=== PATIENT | male | born 1970 | race Caucasian/White ===

== ENCOUNTER 2023-12-06 23:21 | Emergency (ER) | payer MEDICAID ==
[~2023-12-06] VITALS: Ht 177.8 cm; Wt 120.0 kg
[2023-12-06 23:25] VITALS: O2SAT 99
[2023-12-07 02:22] LABS: BASOPHILS % 0.7 % (0.0-2.0); EOSINOPHILS % 5.2 % (0.0-5.0); HEMATOCRIT. 38.8 % (42.0-52.0); LYMPHOCYTES % 23.1 % (20.0-50.0); MEAN CORPUSCULAR HEMOGLOBIN 29.4 pg (28.0-32.0); MEAN CORPUSCULAR HGB CONC 33.5 g/dL (31.0-37.0); MEAN CORPUSCULAR VOLUME 87.8 fL (80.0-94.0); MEAN PLATELET VOLUME 8.7 fl (7.4-10.4); MONOCYTES % 7.5 % (2.0-8.0); NEUTROPHILS % 63.5 % (40.0-76.0); PLATELET 280 x1000/uL (130-400); RED BLOOD CELL COUNT 4.42 mill/uL (4.7-6.1); RED CELL DISTRIBUTION WIDTH 14.6 % (11.6-14.6); WHITE BLOOD COUNT 11.6 x1000/uL (4.5-11.0)
[2023-12-07 02:40] LABS: ALANINE AMINOTRANSFERASE 17 IU/L (10-49); ALBUMIN 4.3 g/dL (3.2-4.8); ASPARTATE AMINOTRANSFERASE 19 IU/L (<34); BILIRUBIN TOTAL 0.5 mg/dL (0.1-1.0); CALCIUM 8.6 mg/dL (8.7-10.4); CARBON DIOXIDE 28 mEq/L (21-32); CHLORIDE 103 mEq/L (98-107); CREATININE 0.7 mg/dL (0.6-1.3); GLUCOSE 100 mg/dL (70-105); POTASSIUM 4.1 mEq/L (3.5-5.1); PROTEIN TOTAL 6.9 g/dL (6.0-8.3); SODIUM 136 mEq/L (136-145); TROPONIN I HIGH SENSITIVITY 8 ng/L (3.0-53); UREA NITROGEN BLOOD 8 mg/dL (9-23)
[2023-12-07 03:13] LABS: CLARITY URINE CLOUDY (CLEAR); COLOR URINE YELLOW (YELLOW); GLUCOSE URINE NEGATIVE (NEGATIVE); KETONES URINE TRACE (NEGATIVE); LEUKOCYTE ESTERASE URINE NEGATIVE (NEGATIVE); NITRITE URINE NEGATIVE (NEGATIVE); OCCULT BLOOD URINE NEGATIVE (NEGATIVE); PH URINE 5.5 (4.5-8.0); PROTEIN URINE NEGATIVE (NEGATIVE); SPECIFIC GRAVITY URINE 1.025 (1.005-1.030)
[2023-12-07 04:52] LABS: WBC URINE 0-2 /hpf (0-2)
[2023-12-07 04:54] LABS: BACTERIA URINE NONE SEEN; RBC URINE 0-2 /hpf (0-2); SQUAMOUS EPITHELIAL CELL URINE RARE /lpf (RARE/1+)
[2023-12-07 05:40] VITALS: BP 113/74; PULSE 64; RESP 20; TEMP 98.8
== END 2023-12-07 06:16 | disposition home or self-care (01) ==
LOC: ER 23:21
DX: R07.89 Other chest pain (principal); I10 Essential (primary) hypertension; Z88.0 Allergy status to penicillin
CPT/HCPCS: 36415; 71045; 80053; 81003; 84484; 85025; 99284

== ENCOUNTER 2024-03-21 21:04 | Emergency (ER) | payer MEDICAID ==
[~2024-03-21] VITALS: Ht 167.6 cm; Wt 118.0 kg
[~2024-03-21 21:04] MED LIST: APIX5TAB PO; ASPI-1160 PO; ATOR-2 PO; CLOP75TA33 PO; FERR325T30 PO; ISOS30TA91 PO; LEVE750T4 PO; LEVO750T68 PO; LOSA25TA26 PO; METO25TA6 PO; SUCR1TAB30 PO
[2024-03-21 21:09] VITALS: BP 172/72; PULSE 91; RESP 18; TEMP 98.6; O2SAT 100
[2024-03-21 21:48] LABS: BASOPHILS % 0.8 % (0.0-2.0); EOSINOPHILS % 6.2 % (0.0-5.0); HEMATOCRIT. 30.8 % (42.0-52.0); HEMOGLOBIN. 10.2 g/dL (14.0-18.0); LYMPHOCYTES % 24.6 % (20.0-50.0); MEAN CORPUSCULAR HEMOGLOBIN 28.2 pg (28.0-32.0); MEAN CORPUSCULAR HGB CONC 33.2 g/dL (31.0-37.0); MEAN CORPUSCULAR VOLUME 84.8 fL (80.0-94.0); MEAN PLATELET VOLUME 8.7 fl (7.4-10.4); MONOCYTES % 9.3 % (2.0-8.0); NEUTROPHILS % 59.1 % (40.0-76.0); PLATELET 318 x1000/uL (130-400); RED BLOOD CELL COUNT 3.64 mill/uL (4.7-6.1); RED CELL DISTRIBUTION WIDTH 13.7 % (11.6-14.6); WHITE BLOOD COUNT 9.6 x1000/uL (4.5-11.0)
[2024-03-21 21:56] LABS: CHLORIDE 102 mEq/L (98-107); POTASSIUM 3.4 mEq/L (3.5-5.1); SODIUM 135 mEq/L (136-145)
[2024-03-21 21:57] LABS: CARBON DIOXIDE 25 mEq/L (21-32); PARTIAL THROMBOPLASTIN TIME 25.2 sec (23.4-31.0); PROTHROMBIN TIME 10.8 sec (9.6-11.0)
[2024-03-21 21:58] LABS: CALCIUM 8.8 mg/dL (8.7-10.4)
[2024-03-21 22:02] LABS: CREATININE 0.8 mg/dL (0.6-1.3)
[2024-03-21 22:03] LABS: GLUCOSE 112 mg/dL (70-105); UREA NITROGEN BLOOD 11 mg/dL (9-23)
[2024-03-21 22:04] LABS: TROPONIN I HIGH SENSITIVITY 8 ng/L (3.0-53)
[2024-03-21 23:19] LABS: TROPONIN I HIGH SENSITIVITY 10 ng/L (3.0-53)
== END 2024-03-22 00:10 | disposition home or self-care (01) ==
LOC: ER 21:04
DX: Z88.0 Allergy status to penicillin (principal); I48.91 Unspecified atrial fibrillation; I25.2 Old myocardial infarction; I10 Essential (primary) hypertension; Z91.012 Allergy to eggs; Z79.899 Other long term (current) drug therapy; Z86.59 Personal history of other mental and behavioral disorders
CPT/HCPCS: 36415; 71045; 80048; 83880; 84484; 85025; 93005; 99285

== ENCOUNTER 2025-01-17 18:54 | Emergency (ER) | payer MEDICAID ==
[~2025-01-17] VITALS: Ht 167.6 cm; Wt 109.0 kg
[~2025-01-17 18:54] MED LIST changes: -CLOP75TA33 PO; +FURO20TA4 PO; +LEVE1000 PO; -LEVE750T4 PO; -LEVO750T68 PO; +METO-539 PO; -METO25TA6 PO; -SUCR1TAB30 PO
[2025-01-17 19:00] VITALS: TEMP 36.5; O2SAT 100
[2025-01-17] MEDS: LEVETIRACETAM 500MG TABLET PO STA (19:32)
[2025-01-17 20:35] VITALS: BP 119/80; PULSE 101; RESP 24; O2SAT 99
[2025-01-17] MEDS ORDERED: [UNRECOGNIZED DRUG - CODE] PO (20:47)
[2025-01-17] MEDS: GUAIFENESIN/CODEINE 200-20MG/10ML UDC PO ONE (21:22)
== END 2025-01-17 21:40 | disposition home or self-care (01) ==
LOC: ER 18:54
DX: G40.909 Epilepsy, unspecified, not intractable, without status epilepticus (principal); R05.9 Cough, unspecified; I48.0 Paroxysmal atrial fibrillation; I10 Essential (primary) hypertension; E78.00 Pure hypercholesterolemia, unspecified; I25.10 Atherosclerotic heart disease of native coronary artery without angina pectoris; Z79.899 Other long term (current) drug therapy; Z95.5 Presence of coronary angioplasty implant and graft; Z79.82 Long term (current) use of aspirin; Z79.01 Long term (current) use of anticoagulants; Z98.890 Other specified postprocedural states; Z88.0 Allergy status to penicillin; Z91.02 Food additives allergy status; Z91.011 Allergy to milk products
CPT/HCPCS: 71045; 99284

== ENCOUNTER 2025-06-18 16:38 | Emergency (ER) | payer MEDICAID ==
[~2025-06-18] VITALS: Ht 175.3 cm; Wt 136.0 kg
[~2025-06-18 16:38] MED LIST changes: +[UNRECOGNIZED DRUG - CODE] PO
[2025-06-18 16:42] VITALS: O2SAT 98
[2025-06-18 17:50] LABS: BASOPHILS % 0.7 % (0.0-2.0); EOSINOPHILS % 3.8 % (0.0-5.0); HEMATOCRIT. 30.5 % (42.0-52.0); HEMOGLOBIN. 9.7 g/dL (14.0-18.0); LYMPHOCYTES % 23.2 % (20.0-50.0); MEAN PLATELET VOLUME 9.0 fl (7.4-10.4); MONOCYTES % 10.9 % (2.0-8.0); NEUTROPHILS % 61.4 % (40.0-76.0); PLATELET 279 x1000/uL (130-400); RED BLOOD CELL COUNT 3.96 mill/uL (4.7-6.1); RED CELL DISTRIBUTION WIDTH 18.4 % (11.6-14.6)
[2025-06-18 17:56] LABS: CREATININE 0.8 mg/dL (0.6-1.3); TROPONIN I HIGH SENSITIVITY < 4 ng/L (3.0-53); UREA NITROGEN BLOOD 7 mg/dL (9-23)
[2025-06-18 17:57] LABS: ASPARTATE AMINOTRANSFERASE 15 IU/L (<34)
[2025-06-18 17:58] LABS: BILIRUBIN DIRECT < 0.1 mg/dL (<=3.0); BILIRUBIN TOTAL 0.2 mg/dL (0.1-1.0); PROTEIN TOTAL 6.3 g/dL (6.0-8.3)
[2025-06-18 20:44] LABS: TROPONIN I HIGH SENSITIVITY < 4 ng/L (3.0-53)
[2025-06-18] MEDS: IOHEXOL-350 100 ML BOTTLE ONE (22:59)
[2025-06-18 23:45] VITALS: BP 113/59; PULSE 69; RESP 15; TEMP 36.8; O2SAT 97
== END 2025-06-19 00:22 | disposition short-term general hospital (02) ==
LOC: ER 16:38 → EDBEDREQTM 18:01 → EDBEDREQ 18:01 → EDBEDREQTM 23:41 → ER 06-19 00:22 → CMPBEDREQ 06-19 13:42
DX: R55 Syncope and collapse (principal); R07.9 Chest pain, unspecified; R06.02 Shortness of breath; I11.0 Hypertensive heart disease with heart failure; I50.9 Heart failure, unspecified; I48.91 Unspecified atrial fibrillation; Z79.01 Long term (current) use of anticoagulants; Z79.82 Long term (current) use of aspirin; Z88.0 Allergy status to penicillin; Z79.899 Other long term (current) drug therapy
CPT/HCPCS: 99285; 71275; 71045; 80076; 80048; 83880; 83735; 85025; 85379; 84484; 36415; Q9967

== ENCOUNTER 2025-07-02 19:00 | Inpatient (IN) | payer MEDICAID ==
[~2025-07-02] VITALS: Ht 175.3 cm; Wt 127.5 kg
[2025-07-02 19:02] VITALS: O2SAT 96
[2025-07-02] MEDS: LEVETIRACETAM 500MG PREMIX 100 ML IV ONE ×2 (20:02→20:35)
[2025-07-02] MEDS: ASPIRIN 325MG EC TABLET PO ONE (20:02)
[2025-07-02 20:11] LABS: BASOPHILS % 0.3 % (0.0-2.0); EOSINOPHILS % 4.2 % (0.0-5.0); HEMATOCRIT. 30.3 % (42.0-52.0); HEMOGLOBIN. 9.5 g/dL (14.0-18.0); LYMPHOCYTES % 20.3 % (20.0-50.0); MEAN PLATELET VOLUME 8.3 fl (7.4-10.4); MONOCYTES % 9.6 % (2.0-8.0); NEUTROPHILS % 65.6 % (40.0-76.0); PLATELET 312 x1000/uL (130-400); RED BLOOD CELL COUNT 4.00 mill/uL (4.7-6.1); RED CELL DISTRIBUTION WIDTH 18.4 % (11.6-14.6)
[2025-07-02 20:25] LABS: CREATININE 0.9 mg/dL (0.6-1.3); UREA NITROGEN BLOOD 11 mg/dL (9-23)
[2025-07-02 20:26] LABS: ASPARTATE AMINOTRANSFERASE 16 IU/L (<34)
[2025-07-02 20:27] LABS: BILIRUBIN DIRECT 0.1 mg/dL (<=3.0); BILIRUBIN TOTAL 0.3 mg/dL (0.1-1.0); PROTEIN TOTAL 6.6 g/dL (6.0-8.3); TROPONIN I HIGH SENSITIVITY 4 ng/L (3.0-53)
[2025-07-02] MEDS ORDERED: NALOXONE HCL 0.4MG/ML VIAL IV PRN (23:45)
[2025-07-03] VITALS (7 sets, daily range): BP systolic 104–137; BP diastolic 58–75; PULSE 66–87; RESP 16–18; TEMP 34.8–36.7; O2SAT 96–100
[2025-07-03] MEDS: HYDROCODONE/ACETAMINOPHEN 5/325MG TABLET PO PRN (00:22)
[2025-07-03 06:05] LABS: TROPONIN I HIGH SENSITIVITY 5.0 ng/L (3.0-53)
[2025-07-03 06:09] LABS: TRIGLYCERIDE 76.0 mg/dL (0-150)
[2025-07-03 06:10] LABS: LDL CHOLESTEROL 60.0 mg/dL (5-100)
[2025-07-03 06:21] LABS: BASOPHILS % 0.4 % (0.0-2.0); EOSINOPHILS % 5.8 % (0.0-5.0); HEMATOCRIT. 28.7 % (42.0-52.0); HEMOGLOBIN. 9.1 g/dL (14.0-18.0); LYMPHOCYTES % 27.5 % (20.0-50.0); MEAN PLATELET VOLUME 8.6 fl (7.4-10.4); MONOCYTES % 9.7 % (2.0-8.0); NEUTROPHILS % 56.6 % (40.0-76.0); PLATELET 288 x1000/uL (130-400); RED BLOOD CELL COUNT 3.78 mill/uL (4.7-6.1); RED CELL DISTRIBUTION WIDTH 18.2 % (11.6-14.6)
[2025-07-03] MEDS: ASPIRIN 81MG TABLET PO SCH (08:39)
[2025-07-03] MEDS: METOPROLOL TARTRATE 50MG TABLET PO SCH (08:40)
[2025-07-03] MEDS: ATORVASTATIN CALCIUM 40MG TABLET PO SCH (08:41)
[2025-07-03] MEDS: ENOXAPARIN 40MG/0.4ML SYR SUBCUT SCH (08:43)
[2025-07-03] MEDS: LEVETIRACETAM 500MG TABLET PO SCH (08:49)
[2025-07-03] MEDS: FUROSEMIDE 40MG/4ML VIAL IVP SCH (11:45)
[2025-07-03] MEDS: REGADENOSON 0.4 MG/5 ML IV ONE (13:45)
[2025-07-03] MEDS: FUROSEMIDE 100MG/10ML VIAL IVP SCH (18:08)
[2025-07-03] MEDS: APIXABAN 5 MG TABLET PO SCH (21:31)
[2025-07-04] VITALS: BP 107/71; PULSE 68; RESP 17; TEMP 36.9; O2SAT 97
[2025-07-04 04:00] VITALS: BP 111/62; PULSE 56; RESP 17; TEMP 36.2; O2SAT 96
[2025-07-04] MEDS ORDERED: REGADENOSON 0.4 MG/5 ML IV ONE (07:46)
[2025-07-04 08:00] VITALS: BP 111/75; PULSE 61; RESP 18; TEMP 36.7; O2SAT 100
[2025-07-04] MEDS: ATORVASTATIN CALCIUM 40MG TABLET PO SCH (09:06)
[2025-07-04 12:00] VITALS: BP 108/71; PULSE 73; RESP 18; TEMP 36.9; O2SAT 100
[2025-07-04 16:00] VITALS: BP 128/78; PULSE 60; RESP 18; TEMP 36.5; O2SAT 100
[2025-07-04] MEDS: LACTULOSE 20G/30ML UDC PO SCH (19:00)
[2025-07-04 20:00] VITALS: BP 119/76; PULSE 70; RESP 16; TEMP 37; O2SAT 97
[2025-07-05] VITALS: BP 111/76; PULSE 86; RESP 17; TEMP 36.4; O2SAT 98
[2025-07-05 04:00] VITALS: BP 117/71; PULSE 60; RESP 17; TEMP 36.4; O2SAT 99
[2025-07-05 06:51] LABS: BASOPHILS % 0.5 % (0.0-2.0); EOSINOPHILS % 3.0 % (0.0-5.0); HEMATOCRIT. 34.9 % (42.0-52.0); LYMPHOCYTES % 18.9 % (20.0-50.0); MEAN PLATELET VOLUME 8.4 fl (7.4-10.4); MONOCYTES % 8.9 % (2.0-8.0); NEUTROPHILS % 68.7 % (40.0-76.0); PLATELET 325 x1000/uL (130-400); RED BLOOD CELL COUNT 4.65 mill/uL (4.7-6.1); RED CELL DISTRIBUTION WIDTH 18.4 % (11.6-14.6)
[2025-07-05 07:03] LABS: HEMOGLOBIN. 10.9 g/dL (14.0-18.0)
[2025-07-05 07:12] LABS: TROPONIN I HIGH SENSITIVITY 5 ng/L (3.0-53)
[2025-07-05 07:15] LABS: CREATININE 0.8 mg/dL (0.6-1.3)
[2025-07-05 07:16] LABS: UREA NITROGEN BLOOD 10 mg/dL (9-23)
[2025-07-05 08:00] VITALS: BP 122/85; PULSE 80; RESP 18; TEMP 36.7; O2SAT 99
[2025-07-05] MEDS ORDERED: POTA-205 MT (11:24)
[2025-07-05] MEDS ORDERED: FURO80TA87 MT (11:24)
[2025-07-05 12:00] VITALS: BP 118/76; PULSE 87; RESP 18; TEMP 36.7; O2SAT 99
[2025-07-05 12:13] VITALS: BP 118/76; PULSE 87; RESP 18; TEMP 98.1
== END 2025-07-05 13:17 | disposition home or self-care (01) | DRG 194 ==
LOC: ER 19:00 → 5WST 21:08 → EDBEDREQTM 21:21 → EDBEDREQ 21:21 → ENRESERV 21:30
PROVIDERS: ADMIT Internal Medicine; ATTEND Internal Medicine
DX: I11.0 Hypertensive heart disease with heart failure (principal); D68.59 Other primary thrombophilia; Z79.01 Long term (current) use of anticoagulants; G90.9 Disorder of the autonomic nervous system, unspecified; D64.9 Anemia, unspecified; I48.20 Chronic atrial fibrillation, unspecified; E66.01 Morbid (severe) obesity due to excess calories; I50.23 Acute on chronic systolic (congestive) heart failure; I25.10 Atherosclerotic heart disease of native coronary artery without angina pectoris; E78.5 Hyperlipidemia, unspecified; G40.909 Epilepsy, unspecified, not intractable, without status epilepticus; I25.5 Ischemic cardiomyopathy; Z79.82 Long term (current) use of aspirin; Z68.41 Body mass index [BMI] 40.0-44.9, adult; Z79.899 Other long term (current) drug therapy; Z88.0 Allergy status to penicillin; Z95.5 Presence of coronary angioplasty implant and graft; Z88.8 Allergy status to other drugs, medicaments and biological substances
CPT/HCPCS: 36415; 71045; 78452; 80048; 80061; 80076; 82962; 83735; 83880; 84484; 85025; 93005; 93017; 93306; 93970; 99285; A9500; J1650; J1938; J1953; J2785